=== PATIENT | female | born 1960 | race Caucasian/White ===

== ENCOUNTER 2020-11-06 08:38 | Emergency (ER) | payer MEDICAID ==
--- NOTE | 2020-11-06 09:23 | EDM.PDOC ---
ED HPI GENERAL MEDICAL PROBLEM - General Chief Complaint: Upper Extremity Injury/Pain Stated Complaint: FELL AND INJURED LEFT ARM IN HOSPITAL PARKING LOT Time Seen by Provider: 11/06/20 08:50 Source of Information: Reports: Patient History Limitations: Reports: No Limitations - History of Present Illness INITIAL COMMENTS - FREE TEXT/NARRATIVE: pt states she was walking into the [employer] and slipped on the ice onto her outstretched left hand. pt states deformity of left wrist and "excruciating pain" denies numbness, tingling of wrist or hand, ROM of fingers intact. Onset: Today Associated Symptoms: Reports: No Other Symptoms Left Wrist Pain Score (Numeric/FACES): 10 - Related Data Allergies Allergy/AdvReac Type Severity Reaction Status Date / Time Penicillins Allergy Rash Verified 11/06/20 09:23 Home Meds: Home Meds Acetaminophen/HYDROcodone [Wann 325-5 MG] 1 tab PO Q6H PRN #16 tab 11/06/20 [Rx] Review of Systems - Review of Systems Review Of Systems: Comprehensive ROS is negative, except as noted in HPI. ED EXAM, GENERAL - Physical Exam Exam: See Below Exam Limited By: No Limitations General Appearance: Alert, WD/WN, Moderate Distress Respiratory/Chest: No Respiratory Distress, No Accessory Muscle Use, Chest Non- Tender Cardiovascular: Normal Peripheral Pulses, Regular Rate, Rhythm, No Murmur Peripheral Pulses: 2+: Radial (L), Radial (R) Extremities: Other (dinner fork deformity of left wrist. ) Neurological: Alert, Oriented, CN II-XII Intact, Normal Cognition Psychiatric: Normal Affect, Normal Mood Skin Exam: Warm, Dry, Intact ED TRAUMA EXTREMITY PROCEDURES - Joint Reduction Left Wrist Sedation: Hematoma/Fracture Block Local Anesthesia - Lidocaine (Xylocaine): 1% Plain Local Anesthesia - Bupivicaine (Marcaine): 0.5% Plain Local Anesthetic Volume: 5cc Pre-Procedure NV Status: Normal Post-Procedure NV Status: Normal Technique: Traction/Counter Traction Number of Attempts: 2 Post-Reduction Imaging: Acceptably Reduced Joint Reduction Complications: No Progress/Comments: consult by Dr. Galvez who provided much improved reduction. phone consult and appointment to [facility] ortho later this week scheduled. Course - Vital Signs Last Recorded V/S: Last Vital Signs Temp 98.3 F 11/06/20 08:50 Pulse 102 H 11/06/20 08:50 Resp 20 11/06/20 08:50 BP 148/94 H 11/06/20 08:50 Pulse Ox 96 11/06/20 08:50 - Orders/Labs/Meds Orders: Active Orders 24 hr Category Date Time Status Wrist 2V Lt [CR] Stat Exams 11/06/20 10:27 Ordered Wrist Comp Min 3V Lt [CR] Stat Exams 11/06/20 10:00 Ordered Meds: Medications Discontinued Medications Generic Name Dose Route Start Last Admin Trade Name Dee PRN Reason Stop Dose Admin Ketorolac Tromethamine 15 mg 11/06/20 10:00 Toradol IM 11/06/20 10:01 ONETIME ONE Ketorolac Tromethamine Confirm 11/06/20 10:11 Toradol Administered 11/06/20 10:12 Dose 30 mg .ROUTE .STK-MED ONE - Radiology Interpretation Free Text/Narrative:: xray left wrist shows impacted and comminuted distal radius fracture with ulnar styloid fracture. improvements noted on followup radiographs after reduction. Departure - Departure Time of Disposition: 10:30 Disposition: Home, Self-Care 01 Condition: Fair Clinical Impression: Fracture of distal radius and ulna, Closed Colles' fracture - Discharge Information *PRESCRIPTION DRUG MONITORING PROGRAM REVIEWED*: Yes *COPY OF PRESCRIPTION DRUG MONITORING REPORT IN PATIENT DAXA: No Instructions: Wrist Fracture Treated With Immobilization, Cast or Splint Care, Adult Referrals: PCP,None [Primary Care Provider] - Forms: ED Department Discharge Sepsis Event Note (ED) - Evaluation Sepsis Screening Result: No Definite Risk - Focused Exam Vital Signs: Vital Signs Temp Pulse Resp BP Pulse Ox 11/06/20 08:50 98.3 F 102 H 20 148/94 H 96 - Problem List & Annotations (1) Closed Colles' fracture SNOMED Code(s): 262375254 Code(s): S52.539A - COLLES' FRACTURE OF UNSP RADIUS, INIT FOR CLOS FX Status: Acute Current Visit: Yes Qualifiers: Encounter type: initial encounter Laterality: left Qualified Code(s): S52.532A - Colles' fracture of left radius, initial encounter for closed fracture - Problem List Review Problem List Initiated/Reviewed/Updated: Yes - My Orders Last 24 Hours: My Active Orders 11/06/20 10:00 Wrist Comp Min 3V Lt [CR] Stat 11/06/20 10:27 Wrist 2V Lt [CR] Stat - Assessment/Plan Last 24 Hours: My Active Orders 11/06/20 10:00 Wrist Comp Min 3V Lt [CR] Stat 11/06/20 10:27 Wrist 2V Lt [CR] Stat Plan: follow up as scheduled with ortho in [facility] norco 1 tab as needed for pain. pecan picker in pharmacy with your prescription. keep cast dry rest, ice, elevate left wrist.
--- NOTE | 2020-11-06 09:31 | CR ---
Date of Service: 11/06/20 Clinical Data: fall LEFT WRIST: There is an impacted, comminuted, intraarticular fracture through the distal radius. There is dorsal displacement and dorsal angulation of the distal fragments with respect to the proximal. There is also a mildly displaced fracture through the ulnar styloid. No other acute abnormalities. [id number] [facility]
[2020-11-06] MEDS ORDERED: Ketorolac 30 MG/ML SDV IM ONE (10:00)
[2020-11-06] MEDS ORDERED: Ketorolac 30 MG/ML SDV ONE (10:11)
--- NOTE | 2020-11-07 06:49 | CR ---
Date of Service: 11/06/20 Clinical Data: wrist brake LEFT WRIST: Views through a splint were obtained. Comparison is made to a prior images from approximately 1 hour earlier. The comminuted, impacted, intraarticular fracture through the distal radius is again seen. There is persistent dorsal angulation and displacement of the distal fragment with respect to the proximal. No new abnormalities. [id number] [facility]
--- NOTE | 2020-11-07 06:54 | CR ---
Date of Service: 11/06/20 Clinical Data: post reduction LEFT WRIST Views through a splint were obtained. The comminuted intraarticular fracture through the distal radius is again seen. The fracture fragments are improved in alignment and position from the prior exam, however, there is persistent dorsal displacement and angulation of the distal fragments with respect to the proximal. No new abnormalities. [id number] [facility]
--- NOTE | 2020-11-07 06:57 | CR ---
Date of Service: 11/06/20 Clinical Data: post reduction LEFT WRIST: Comparison is made to a prior exam from earlier in the day. View through a splint again demonstrate the comminuted intraarticular fracture through the distal radius. The fracture fragments are significantly improved in alignment or position from the earlier exam with near anatomic alignment and position. No new abnormalities. [id number] [facility]
== END 2020-11-06 12:14 | disposition home or self-care (01) ==
LOC: LB.ED 08:38
DX: S52.532A Colles' fracture of left radius, initial encounter for closed fracture (principal); S52.612A Displaced fracture of left ulna styloid process, initial encounter for closed fracture; Z88.0 Allergy status to penicillin; W00.0XXA Fall on same level due to ice and snow, initial encounter; Y93.01 Activity, walking, marching and hiking
CPT/HCPCS: 25605; 73100-LT; 73110-LT; 96372; 99283-25; J1885

== ENCOUNTER 2022-05-19 17:13 | Emergency (ER) | payer MEDICAID ==
[2022-05-19] MEDS ORDERED: Doxycycline 100 MG Cap ONE (17:30)
== END 2022-05-19 17:45 | disposition home or self-care (01) ==
LOC: LB.ED 17:13
DX: S20.469A Insect bite (nonvenomous) of unspecified back wall of thorax, initial encounter (principal); L03.312 Cellulitis of back [any part except buttock and flank]; W57.XXXA Bitten or stung by nonvenomous insect and other nonvenomous arthropods, initial encounter
CPT/HCPCS: 99282; A9270

== ENCOUNTER 2024-05-05 09:22 | Observation (INO) | payer MEDICAID ==
[2024-05-05] MEDS ORDERED: Sodium Chloride 0.9% 10 ML Syringe FLUSH PRN (09:37)
[2024-05-05] MEDS: Sodium Chloride 0.9% 1,000 ML IV ONE (09:42)
[2024-05-05 09:47] LABS: HEMATOCRIT 50.1 % (37.0-47.0); HEMOGLOBIN 16.8 g/dL (11.5-16.5); MEAN CORPUSCULAR HEMOGLOBIN 30.6 pg (27.0-32.0); MEAN CORPUSCULAR HGB CONC 33.5 g/dL (31.0-35.0); MEAN PLATELET VOLUME 10.8 fL (6.0-10.0); RED BLOOD CELL COUNT 5.49 M/uL (3.80-5.80); RED CELL DISTRIBUTION WIDTH 13.4 % (11.0-16.0); WHITE BLOOD CELL COUNT,WBC 11.5 K/uL (4.0-11.0)
[2024-05-05] MEDS: Metoprolol Tartrate 5 MG/5 ML SDV IVPUSH ONE ×2 (09:58→10:52)
[2024-05-05 10:14] LABS: A/G RATIO 1.1 (0.8-2.0); ALBUMIN 3.8 g/dL (3.4-5.0); BILIRUBIN TOTAL 0.5 mg/dL (0.0-1.0); BUN/CREATININE RATIO 15.2 (6-25); CALCIUM 8.9 mg/dL (8.5-10.1); CARBON DIOXIDE,CO2 28.7 mmol/L (21.0-32.0); CREATININE 0.99 mg/dL (0.55-1.02); EST CRCL DRUG DOSING (CG) 43.89 mL/min; MAGNESIUM 2.2 mg/dL (1.8-2.4); POTASSIUM,K 3.7 mmol/L (3.5-5.1); PROTEIN TOTAL,TP 7.3 g/dL (6.4-8.2); TROPONIN I HIGH SENSITIVITY 11.4 pg/ml (<=60.4)
[2024-05-05] MEDS: Aspirin 81 MG Tab.Chew PO ONE (10:14)
[2024-05-05 10:18] LABS: PHOSPHORUS 3.2 mg/dL (2.5-4.9)
[2024-05-05] MEDS: Metoprolol Tartrate 5 MG/5 ML SDV ONE ×2 (10:49→10:56)
[2024-05-05] MEDS: fentaNYL 100 MCG/2 ML SDV IVPUSH ONE (13:07)
[2024-05-05] MEDS: Ondansetron 4 MG/2 ML SDV IVPUSH ONE ×2 (13:12→17:19)
[2024-05-05] MEDS: Propofol 200 MG/20 ML SDV IVPUSH SCH (13:15)
[2024-05-05] MEDS: fentaNYL 100 MCG/2 ML SDV ONE (13:26)
[2024-05-05] MEDS: diazePAM 5 MG/ML MDV ONE (13:26)
[2024-05-05] MEDS: Prochlorperazine 10 MG/2 ML SDV IVPUSH ONE (15:13)
[2024-05-05] MEDS: Prochlorperazine 10 MG/2 ML SDV ONE (15:16)
[2024-05-05] MEDS ORDERED: Metoprolol Tartrate 25 MG Tab ONE (17:00)
[2024-05-05] MEDS ORDERED: Isosorbide Mononitrate 30 MG Tab.ER ONE (17:00)
[2024-05-05] MEDS: Sodium Chloride 0.9% 50 ML SDV FLUSH SCH (17:10)
[2024-05-05] MEDS: Iopamidol 612 MG/ML 100 ML Bottle IV PRN (17:10)
[2024-05-05] MEDS: Ondansetron 4 MG/2 ML SDV ONE ×2 (17:24→19:31)
[2024-05-05] MEDS: hydrALAZINE 20 MG/ML SDV IVPUSH ONE (18:38)
[2024-05-05] MEDS: hydrALAZINE 20 MG/ML SDV ONE (18:44)
[2024-05-05] MEDS ORDERED: Promethazine 6.25 MG in Sodium Chloride 0.9% 50 ML IV PRN (19:23)
[2024-05-05] MEDS: Isosorbide Mononitrate 30 MG Tab.ER PO SCH (19:31)
[2024-05-05] MEDS: Metoprolol Tartrate 25 MG Tab PO SCH (21:45)
[2024-05-06 08:54] LABS: ANION GAP 11.6 mmol/L (5.0-15.0); BUN/CREATININE RATIO 11.2 (6-25); CALCIUM 8.4 mg/dL (8.5-10.1); CARBON DIOXIDE,CO2 29.1 mmol/L (21.0-32.0); CREATININE 1.25 mg/dL (0.55-1.02); EST CRCL DRUG DOSING (CG) 34.76 mL/min; POTASSIUM,K 3.7 mmol/L (3.5-5.1)
[2024-05-06] MEDS: Isosorbide Mononitrate 30 MG Tab.ER ONE (15:14)
[2024-05-06] MEDS: Metoprolol Tartrate 25 MG Tab ONE (15:14)
[2024-05-08 17:28] LABS: TRIIODOTHYRONINE,FREE FREE T3 2.6 pg/mL (2.5-4.3)
[2024-05-08 17:33] LABS: THYROXINE FREE 1.1 ng/dL (0.9-1.7)
[2024-05-09 14:49] LABS: B. BURGDORFERI IGG IMMUNOBLOT Negative (Negative); B. BURGDORFERI IGM IMMUNOBLOT Negative (Negative)
== END 2024-05-06 10:30 | disposition home or self-care (01) ==
LOC: LB.ED 09:22 → LB.MS 19:15 → UNDODISOB 19:15
PROVIDERS: ADMIT Surgery; ATTEND Surgery
DX: I48.91 Unspecified atrial fibrillation (principal); I10 Essential (primary) hypertension; Z79.899 Other long term (current) drug therapy; Z88.0 Allergy status to penicillin
CPT/HCPCS: 36415; 70450; 70496; 70498; 71045; 80048; 80053; 83735; 83880; 84100; 84439; 84443; 84481; 84484; 85027; 85379; 86617; 93005; 96361; 96374; 96375; 96376; 99285; A9270; G0378; J0360; J0780; J2405; J2704; J3360; J3490; J7030; Q9967; 99222; 99238; J3010

== ENCOUNTER 2024-07-21 04:25 | Emergency (ER) | payer MEDICAID ==
[2024-07-21] MEDS: Ondansetron 4 MG/2 ML SDV IVPUSH ONE (05:22)
[2024-07-21 05:49] LABS: HEMATOCRIT 47.4 % (37.0-47.0); HEMOGLOBIN 16.1 g/dL (11.5-16.5); MEAN CORPUSCULAR HEMOGLOBIN 30.7 pg (27.0-32.0); MEAN CORPUSCULAR VOLUME 90 fL (76-96); RED BLOOD CELL COUNT 5.25 M/uL (3.80-5.80); WHITE BLOOD CELL COUNT,WBC 10.5 K/uL (4.0-11.0)
[2024-07-21 05:50] LABS: BASOPHILS ABSOLUTE AUTO 0.03 K/uL (0.02-0.10); BASOPHILS PERCENT AUTO 0.3 % (0.0-0.5); EOSINOPHILS ABSOLUTE AUTO 0.09 K/uL (0.04-0.40); EOSINOPHILS PERCENT AUTO 0.9 % (1.0-5.0); LYMPHOCYTES ABSOLUTE AUTO 0.87 K/uL (1.50-4.00); LYMPHOCYTES PERCENT AUTO 8.3 % (20.0-40.0); MONOCYTES ABSOLUTE AUTO 0.48 K/uL (0.20-0.80); MONOCYTES PERCENT AUTO 4.6 % (3.0-10.0); NEUTROPHILS PERCENT AUTO 85.9 % (45.0-70.0); PLATELET COUNT,PLT 280 K/uL (150-500); RED CELL DISTRIBUTION WIDTH 13.7 % (11.0-16.0)
[2024-07-21 05:51] LABS: PROTHROMBIN TIME 10.4 sec (9.0-11.5); PTT,PARTIAL THROMBOPLSTIN TIME 25.9 SECONDS (24.4-33.2)
[2024-07-21 05:52] LABS: MAGNESIUM 2.3 mg/dL (1.8-2.4); MEAN PLATELET VOLUME 10.7 fL (6.0-10.0); TROPONIN I HIGH SENSITIVITY 6.4 pg/ml (<=60.4)
[2024-07-21 05:53] LABS: A/G RATIO 1.1 (0.8-2.0); ALBUMIN 3.7 g/dL (3.4-5.0); ANION GAP 15.4 mmol/L (5.0-15.0); BILIRUBIN TOTAL 0.5 mg/dL (0.0-1.0); BUN/CREATININE RATIO 26.4 (6-25); CALCIUM 9.1 mg/dL (8.5-10.1); CARBON DIOXIDE,CO2 26.3 mmol/L (21.0-32.0); CREATININE 0.87 mg/dL (0.55-1.02); EST CRCL DRUG DOSING (CG) 47.54 mL/min; POTASSIUM,K 3.7 mmol/L (3.5-5.1); PROTEIN TOTAL,TP 7.1 g/dL (6.4-8.2)
[2024-07-21 06:06] LABS: CORONAVIRUS COVID-19 NAA NEGATIVE (NEGATIVE); INFLUENZA A NAA NEGATIVE (NEGATIVE)
[2024-07-21 06:07] LABS: INFLUENZA B NAA NEGATIVE (NEGATIVE); RESPIRATORY SYNCYTIAL VIR NAA NEGATIVE (NEGATIVE)
[2024-07-21] MEDS: Sodium Chloride 0.9% 1,000 ML IV ONE (06:30)
[2024-07-21] MEDS: Metoprolol Succinate 50 MG Tab.ER PO ONE (07:24)
[2024-07-21] MEDS: Metoprolol Succinate 50 MG Tab.ER ONE (07:34)
[2024-07-21] MEDS ORDERED: Sodium Chloride 0.9% 10 ML Syringe FLUSH PRN (07:35)
[2024-07-21] MEDS ORDERED: Ondansetron 4 MG Tab.DIS ONE (08:45)
[2024-07-21] MEDS: Ondansetron 4 MG Tab.DIS ONE (09:35)
== END 2024-07-21 08:50 | disposition home or self-care (01) ==
LOC: LB.ED 04:25
DX: R42 Dizziness and giddiness (principal); I10 Essential (primary) hypertension; Z79.82 Long term (current) use of aspirin; Z79.899 Other long term (current) drug therapy; Z88.0 Allergy status to penicillin; Z91.048 Other nonmedicinal substance allergy status
CPT/HCPCS: 0241U; 36415; 70450; 71250; 80053; 83735; 84484; 85025; 85379; 85610; 85730; 93005; 96361; 96374; 99285; A9270; J2405; J7030; Q0162